=== PATIENT | female | born 1970 | race Caucasian/White ===

== ENCOUNTER 2020-01-08 10:05 | Outpatient (CLI) | payer OTHER ==
--- NOTE | 2020-01-08 11:01 | RAD ---
EXAM: Single view of the abdomen HISTORY: History of kidney stones COMPARISON: 11/08/2018 FINDINGS: Single view of the abdomen shows a nonspecific, nonobstructive bowel gas pattern. Tiny punc gross calcifications project of the right renal shadow. The bones are unremarkable. IMPRESSION: Right nephrolithiasis
[2020-01-08 14:27] LABS: Hemoglobin 7.6 g/dL (12.0-16.0); Mean Corpuscular HGB CONC 31.2 g/dL (32.0-36.0); Mean Corpuscular Hemoglobin 25.4 pg (27.0-31.0); Mean Corpuscular Volume 81.5 fL (78.0-98.0); Mean Platelet Volume 10.3 fL (7.4-10.4); Platelet Count 120 thou/uL (130-400); RBC Distribution Width 15.2 % (11.5-14.5); Red Blood Cell (RBC) Count 2.97 mill/uL (4.20-5.40); White Blood Cell (WBC) Count 8.3 thou/uL (4.8-10.8)
[2020-01-08 14:28] LABS: BHCG - Serum Negative (NEGATIVE); Pregs Control Background? CLEAR/WHITE (CLR/WHITE); Pregs Control Bar Appear? YES (CONTROL BAR)
[2020-01-08 14:48] LABS: Anion Gap 16 mmol/L (10-20); BUN (Urea Nitrogen) 59 mg/dL (7.0-18.7); Calc. Creatinine Clearance 0 mL/min (70-130); Calcium 7.6 mg/dL (7.8-10.44); Carbon Dioxide 19 mmol/L (22-29); Chloride 102 mmol/L (98-107); Estimated GFR-MDRD 11; Glucose 190 mg/dL (70-105); Potassium 3.9 mmol/L (3.5-5.1); Sodium 133 mmol/L (136-145)
[2020-01-09 13:12] LABS: SARS-CoV-2 MS2 Positive; SARS-CoV-2 N Gene Negative; SARS-CoV-2 S Gene Negative; SARS-CoV-2 orf1ab Negative
== END 2020-01-08 10:06 | disposition home or self-care (01) ==
LOC: LABBT 10:05 → SCSRAD 10:06
PROVIDERS: ATTEND Urology
DX: N20.0 Calculus of kidney (principal)
CPT/HCPCS: 74018; 80048; 84703; 85027; 87635; U0003

== ENCOUNTER 2020-01-09 11:17 | Day surgery (SDC) | payer OTHER ==
[2020-01-08 13:08] VITALS: BMI 23.6
[2020-01-09] MEDS ORDERED: PROPOFOL 200 MG/20 ML VIAL ONE (11:38)
[2020-01-09] MEDS ORDERED: Lidocaine 1% PF 5 ML VIAL ONE (11:38)
[2020-01-09] MEDS ORDERED: PHENYLEPHRINE-NS 100 MCG/ML 10 ML SYRINGE ONE (11:38)
[2020-01-09] MEDS ORDERED: Levofloxacin 500 mg/D5W 100 ml Premix Bag ONE (11:45)
[2020-01-09] MEDS ORDERED: Iopamidol 50 ML FS ONE (11:49)
[2020-01-09] MEDS ORDERED: Midazolam HCl 2 mg/2 ml Vial ONE (11:51)
[2020-01-09] MEDS ORDERED: Fentanyl 100 MCG/2 ML VIAL ONE (11:51)
[2020-01-09] MEDS ORDERED: Ondansetron HCl/PF 4 MG/2 ML Vial IVP PRN (12:29)
[2020-01-09] MEDS ORDERED: Promethazine HCl 25 MG/ML VIAL IM PRN (12:29)
[2020-01-09] MEDS ORDERED: Promethazine HCl 25 MG/ML VIAL SLOW IVP PRN (12:29)
--- NOTE | 2020-01-09 12:48 | RAD ---
EXAM: Retrograde IVP HISTORY: Right kidney stone COMPARISON: 01/08/2020 FINDINGS/IMPRESSION: A limited intraoperative fluoroscopic view of a retrograde IVP were submitted fo r interpretation. There is a stent in the right renal collecting system. There is no evidence of hydronephrosis. No obvious filling defects are seen.
[2020-01-09] MEDS ORDERED: Oxybutynin 5 MG TAB ONE (13:32)
[2020-01-09] MEDS ORDERED: HYDROcodone/Acetaminophen 5/325 mg Tablet ONE (14:44)
--- NOTE | 2020-01-12 10:57 | OP ---
DATE OF PROCEDURE: 01/09/2020 PREOPERATIVE DIAGNOSIS: Presumed right ureteral stone. POSTOPERATIVE DIAGNOSES: Right ureteral stone. PROCEDURES PERFORMED: Left retrograde pyelogram, right retrograde pyelogram with ureteroscopy, laser, basket extraction, stent placement. ANESTHESIA: General. COMPLICATIONS: None. BLOOD LOSS: None. SPECIMEN: Stone fragments. DESCRIPTION OF PROCEDURE: After informed consent, the patient was taken to the operating room, transferred to the table on her own power. Anesthesia was established. A time-out was performed ensuring the correct patient, site, and procedure. Preoperative antibiotics were administered. She was prepped and draped in the lithotomy position. I began by inserting the semi-rigid ureteroscope through the urethra into the bladder. The left ureter was identified, cannulated with a wire, and scope inserted into the distal ureter. A retrograde pyelogram was performed with the scope, showing good filling of the ureter and renal pelvis without filling defects or evidence of obstruction. The scope was then positioned towards the right ureter and the wire passed into the ureteral orifice. I was able to note a stone lodged just proximal to the ureteral orifice. The scope was withdrawn and reinserted alongside the wire until the stone was identified in the distal ureter. The 365 micron laser fiber was used to dust the stone into three small pieces. The Nitinol basket was used to retrieve the stone fragments. The scope was then passed slightly further into the ureter about 3 to 4 cm and a gentle retrograde performed, showing hydroureter and hydronephrosis. The scope was then withdrawn and a 6 x 24 double-J ureteral stent was passed over the wire with a curl in the kidney and curl in the bladder under fluoroscopic guidance. Job ID: [id number]
== END 2020-01-09 15:25 | disposition home or self-care (01) ==
LOC: SDC 11:17
PROVIDERS: ATTEND Urology
PROC: 0TC68ZZ Extirpation of Matter from Right Ureter, Via Natural or Artificial Opening Endoscopic (ICD-10-PCS; principal; 2020-01-09)
PROC: 0T768DZ Dilation of Right Ureter with Intraluminal Device, Via Natural or Artificial Opening Endoscopic (ICD-10-PCS; principal; 2020-01-09)
DX: N13.2 Hydronephrosis with renal and ureteral calculous obstruction (principal); E11.9 Type 2 diabetes mellitus without complications; Z79.84 Long term (current) use of oral hypoglycemic drugs; Z88.1 Allergy status to other antibiotic agents; Z88.2 Allergy status to sulfonamides
CPT/HCPCS: 74420; 82365; 88300; J1956; J2001; J2250; J2704; J3010; Q9967

== ENCOUNTER 2020-11-21 10:49 | Outpatient (CLI) | payer OTHER | END 2020-11-21 10:50 | disposition home or self-care (01) | LOC: BICRAD 10:49 | PROVIDERS: ATTEND Urology | DX: N20.0 Calculus of kidney (principal) | CPT/HCPCS: 74018 ==

== ENCOUNTER 2022-03-17 15:21 | Outpatient (CLI) | payer OTHER | END 2022-03-17 15:22 | disposition home or self-care (01) | LOC: BICULT 15:21 | PROVIDERS: ATTEND Internal Medicine Nephrology | DX: N17.9 Acute kidney failure, unspecified (principal); E11.22 Type 2 diabetes mellitus with diabetic chronic kidney disease; N18.31 Chronic kidney disease, stage 3a; N20.0 Calculus of kidney; N28.1 Cyst of kidney, acquired | CPT/HCPCS: 76770 ==